=== PATIENT | female | born 1990 | race African-American/Black ===

== ENCOUNTER 2016-11-25 23:43 | Emergency (ER) | payer OTHER ==
[~2016-11-25] VITALS: Ht 160 cm; Wt 85.0 kg
[2016-11-25 23:46] VITALS: BP 160/72; PULSE 137; RESP 20; TEMP 98; O2SAT 98
[2016-11-26 00:08] VITALS: PULSE 109
[2016-11-26] MEDS ORDERED: TETANUS/DIPHTHERIA TOXOID ADULT 0.5 ML VIAL IM ONE (00:45)
[2016-11-26 01:11] LABS: AUTOMATED NEUTROPHIL # 7.9 TH/MM3 (1.8-7.7); BASOPHIL % 0.3 % (0.0-2.0); EOSINOPHIL % 0.3 % (0.0-4.0); HEMATOCRIT 41.9 % (35.0-46.0); HEMO FLAGS DIFF FINAL; LYMPH % 30.6 % (9.0-44.0); MEAN CELL VOLUME 85.6 FL (80.0-100.0); MEAN CORPUSCULAR HEMOGLOBIN 28.2 PG (27.0-34.0); MONO % 7.5 % (0.0-8.0); NEUT % 61.3 % (16.0-70.0); PLATELET COUNT 315 TH/MM3 (150-450); RED CELL DISTRIBUTION WIDTH 15.6 % (11.6-17.2); WHITE BLOOD COUNT 12.9 TH/MM3 (4.0-11.0)
[2016-11-26 01:14] LABS: BACTERIA, URINE RARE /hpf; BLOOD, URINE NEG (NEG); COMMENT (UR) CULT NOT INDICATED; CULTURE IF INDICATED CULT NOT INDICATED; GLUCOSE,URINE NEG (NEG); KETONE, URINE NEG (NEG); NITRITE,URINE NEG (NEG); PH, URINE 5.5 (5.0-8.5); SQUAMOUS EPITHELIAL CELL URINE 18 /hpf (0-5); URINE COLOR YELLOW (YELLW/STRAW)
[2016-11-26 01:32] LABS: BICARBONATE 22.7 MEQ/L (21.0-32.0); POTASSIUM 4.1 MEQ/L (3.5-5.1)
[2016-11-26] MEDS ORDERED: ACETAMINOPHEN 325 MG TAB PO ONE (02:00)
[2016-11-26] MEDS ORDERED: ONDANSETRON ODT 4 MG TAB PO ONE (02:00)
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
== END 2016-11-26 02:54 ==
LOC: NEPC 23:43
DX: T14.8 Other injury of unspecified body region (principal); S70.212A Abrasion, left hip, initial encounter; S70.312A Abrasion, left thigh, initial encounter; R51 Headache; R11.0 Nausea; Z23 Encounter for immunization; W18.39XA Other fall on same level, initial encounter
CPT/HCPCS: 80048; 81001; 84703; 85025; 90471; 90714